=== PATIENT | female | born 1975 | race Caucasian/White ===

== ENCOUNTER 2022-11-14 12:51 | Inpatient (IN) | payer SELFPAY ==
[~2022-11-14] VITALS: Ht 157.5 cm; Wt 37.2 kg
[2022-11-14 15:54] VITALS: BP_SYST 101; BP_SYST 139; BP_DIAS 76; BP_DIAS 89; PULSE 111; PULSE 99; RESP 22; TEMP 98.4; TEMP 98.9
[2022-11-14 16:16] LABS: GLUCOMETER DEV NAME(LOC) POC.BV
[2022-11-14] MEDS ORDERED: HALOPERIDOL 5 MG TABLET PO PRN (17:15)
[2022-11-14] MEDS ORDERED: LORazepam 2 MG TABLET PO PRN (17:15)
[2022-11-14] MEDS ORDERED: ZOLPIDEM TARTRATE 10 MG TABLET PO PRN (17:15)
[2022-11-14 17:54] VITALS: BP 107/82; PULSE 74; RESP 18; TEMP 98.4; O2SAT 100
[2022-11-14] MEDS ORDERED: MAGNESIUM HYDROXIDE SUSPENSION 30 ML UDCUP PO PRN (19:15)
[2022-11-14] MEDS ORDERED: IBUPROFEN 400 MG TABLET PO PRN (19:15)
[2022-11-14] MEDS ORDERED: ACETAMINOPHEN 325 MG TABLET PO PRN (19:15)
[2022-11-14] MEDS ORDERED: NICOTINE 14 MG/24 HOUR PATCH TD PRN (19:15)
[2022-11-14] MEDS ORDERED: GuaiFENesin/D-METHORPHAN [SUGAR-FREE] 200-20MG/10 ML SYRUP UDCUP PO PRN (19:15)
[2022-11-14] MEDS ORDERED: ONDANSETRON HCL 4 MG TABLET PO PRN (19:15)
[2022-11-14] MEDS ORDERED: MAG HYDROX/AL HYDROX/SIMETH ES 30 ML SUSPENSION UDCUP PO PRN (19:15)
[2022-11-14] MEDS ORDERED: PETROLATUM,WHITE 28 GM JELLY TP PRN (19:15)
[2022-11-14] MEDS ORDERED: DOCUSATE SODIUM 100 MG CAPSULE PO PRN (19:15)
[2022-11-14] MEDS ORDERED: ALBUTEROL SULFATE HFA 90 MCG/PUFF 8 GM INHALER IH PRN (19:15)
[2022-11-14 20:10] VITALS: BP 112/72; PULSE 68; RESP 18; TEMP 98; O2SAT 83
[2022-11-15 05:09] VITALS: RESP 18
[2022-11-15 07:53] LABS: BASOPHILS % (AUTO) 1.2 % (0.0-2.0); EOSINOPHILS % (AUTO) 0.4 % (1.0-6.0); HEMATOCRIT 36.3 % (36-46); LYMPHOCYTES # (AUTO) 2.1 K/uL (1.0-4.8); LYMPHOCYTES % (AUTO) 25.4 % (22.0-44.0); MEAN CORPUSCULAR HEMOGLOBIN 30.7 pg (26.0-34.0); MEAN CORPUSCULAR HGB CONC 33.1 G/dL (31.0-37.0); MEAN CORPUSCULAR VOLUME 93 fL (80-100); MONOCYTES # (AUTO) 0.6 K/uL (0.1-1.0); MONOCYTES % (AUTO) 6.8 % (2.0-9.0); NEUTROPHILS # (AUTO) 5.5 K/uL (1.8-7.7); NEUTROPHILS % (AUTO) 66.2 % (40.0-70.0); PLATELET COUNT (AUTO) 302 K/uL (150-450); RED BLOOD CELL COUNT(AUTO) 3.93 MIL/uL (4.00-5.20); RED CELL DISTRIBUTION WIDTH 15.1 % (11.5-14.5)
[2022-11-15 08:21] VITALS: BP 119/88; PULSE 67; RESP 18; TEMP 97.8; O2SAT 96
[2022-11-15 08:46] LABS: ALANINE AMINOTRANSFERASE 20 U/L (12-78); ALBUMIN 3.4 g/dL (3.4-5.0); ALKALINE PHOSPHATASE 57 U/L (46-116); ANION GAP 6 mmol/L (8-16); ASPARTATE AMINOTRANSFERASE 19 U/L (15-37); CALCIUM, TOTAL 8.6 mg/dL (8.8-10.5); CARBON DIOXIDE 25 mmol/L (22-29); CHLORIDE 105 mmol/L (98-107); CHOL/HDL RATIO 2.7 (3.9-5.7); CHOLESTEROL 154 mg/dL (131-200); CREATININE 0.54 mg/dL (0.60-1.30); FREE T4 (FREE THYROXINE) 0.97 ng/dL (0.76-1.46); GLOMERULAR FILTR. RATE CALC > 60 mL/min (>60); GLUCOSE,RANDOM 90 mg/dL (70-110); HCG,QUANTITATIVE 1 mIU/mL (0-6); HDL CHOLESTEROL 57 mg/dL (40-60); LDL CHOL (CALC.) 87 mg/dL (0-130); POTASSIUM 3.9 mmol/L (3.5-5.1); SODIUM SERUM 136 mmol/L (136-145); THYROID STIMULATING HORMONE 1.12 uIU/mL (0.36-3.74); TOTAL PROTEIN, SERUM 6.9 g/dL (6.4-8.2); TRIGLYCERIDES 50 mg/dL (15-150)
[2022-11-15 11:06] LABS: HEMOGLOBIN A1C 5.1 % (3.8-5.6)
[2022-11-15 12:30] VITALS: RESP 18; O2SAT 96
[2022-11-15 13:30] VITALS: RESP 18
[2022-11-15 20:17] VITALS: BP 122/92; PULSE 67; RESP 18; TEMP 98.2; O2SAT 98
[2022-11-15] MEDS ORDERED: MIRTAZAPINE 15 MG TABLET PO SCH (21:00)
[2022-11-15] MEDS: QUEtiapine FUMARATE 100 MG TABLET PO SCH (21:04)
[2022-11-15] MEDS ORDERED: LORazepam 1 MG TABLET PO PRN (21:15)
[2022-11-16 08:06] LABS: HEPATITIS C AB (EIA) Non Reactive (Non Reactive)
[2022-11-16 08:23] VITALS: BP 107/75; PULSE 89; RESP 17; TEMP 97.7; O2SAT 96
[2022-11-16] MEDS: MULTIVITAMINS WITH MINERALS, THERAPEUTIC TABLET PO SCH (09:00)
[2022-11-16] MEDS: THIAMINE 100 MG TABLET PO SCH (09:00)
[2022-11-16 20:15] VITALS: BP 130/85; PULSE 77; RESP 17; TEMP 98; O2SAT 100
[2022-11-16] MEDS: ZOLPIDEM TARTRATE 5 MG TABLET PO PRN (20:24)
[2022-11-16] MEDS: QUEtiapine FUMARATE 100 MG TABLET PO SCH (20:24)
[2022-11-17 08:17] VITALS: BP 124/82; PULSE 77; RESP 18; TEMP 97.6; O2SAT 100
[2022-11-17] MEDS: MULTIVITAMINS WITH MINERALS, THERAPEUTIC TABLET PO SCH (08:36)
[2022-11-17] MEDS: THIAMINE 100 MG TABLET PO SCH (08:45)
[2022-11-17] MEDS ORDERED: MEGESTROL ACETATE 400 MG/10 ML SUSPENSION UDCUP PO SCH (09:00)
[2022-11-17] MEDS: ZOLPIDEM TARTRATE 5 MG TABLET PO PRN (20:14)
[2022-11-17] MEDS: QUEtiapine FUMARATE 100 MG TABLET PO SCH (20:14)
[2022-11-17 21:14] VITALS: BP 125/84; PULSE 79; RESP 18; TEMP 97.6; O2SAT 98
[2022-11-18 08:06] VITALS: BP 120/63; PULSE 90; RESP 18; TEMP 97.9; O2SAT 99
[2022-11-18] MEDS: MULTIVITAMINS WITH MINERALS, THERAPEUTIC TABLET PO SCH (08:17)
[2022-11-18] MEDS: THIAMINE 100 MG TABLET PO SCH (08:17)
[2022-11-18 08:32] LABS: MAGNESIUM 2.3 mg/dL (1.80-2.40); PHOSPHORUS 3.4 mg/dL (2.5-4.9); POTASSIUM 4.1 mmol/L (3.5-5.1)
[2022-11-18] MEDS: QUEtiapine FUMARATE 100 MG TABLET PO SCH (20:00)
[2022-11-18] MEDS: ZOLPIDEM TARTRATE 5 MG TABLET PO PRN (20:00)
[2022-11-18 20:19] VITALS: BP 116/80; PULSE 84; RESP 19; TEMP 97.8; O2SAT 98
[2022-11-19 02:39] VITALS: BP 108/68; PULSE 76; RESP 16; TEMP 97.6; O2SAT 98
[2022-11-19 08:24] VITALS: BP 103/62; PULSE 72; RESP 17; TEMP 97.3; O2SAT 97
[2022-11-19] MEDS: MULTIVITAMINS WITH MINERALS, THERAPEUTIC TABLET PO SCH (08:31)
[2022-11-19] MEDS: THIAMINE 100 MG TABLET PO SCH (08:31)
[2022-11-19 20:09] VITALS: BP 108/73; PULSE 77; RESP 17; TEMP 97.3; O2SAT 99
[2022-11-19] MEDS: QUEtiapine FUMARATE 100 MG TABLET PO SCH (20:09)
[2022-11-19] MEDS: ZOLPIDEM TARTRATE 5 MG TABLET PO PRN (20:11)
[2022-11-20 04:05] VITALS: BP 107/81; PULSE 79; RESP 17; TEMP 97.5; O2SAT 99
[2022-11-20 08:18] LABS: MAGNESIUM 2.3 mg/dL (1.80-2.40); PHOSPHORUS 3.5 mg/dL (2.5-4.9); POTASSIUM 3.6 mmol/L (3.5-5.1)
[2022-11-20] MEDS: THIAMINE 100 MG TABLET PO SCH (08:47)
[2022-11-20] MEDS: MULTIVITAMINS WITH MINERALS, THERAPEUTIC TABLET PO SCH (08:48)
[2022-11-20 11:08] VITALS: BP 117/66; PULSE 86; RESP 16; TEMP 98.4; O2SAT 100
[2022-11-20] MEDS: QUEtiapine FUMARATE 100 MG TABLET PO SCH ×2 (20:14→21:00)
[2022-11-20] MEDS: ZOLPIDEM TARTRATE 5 MG TABLET PO PRN (20:20)
[2022-11-20 20:40] VITALS: BP 133/72; PULSE 72; RESP 17; TEMP 98.4; O2SAT 98
[2022-11-21 08:00] LABS: MAGNESIUM 2.4 mg/dL (1.80-2.40)
[2022-11-21 08:21] VITALS: BP 111/74; PULSE 78; RESP 19; TEMP 97.9; O2SAT 100
[2022-11-21] MEDS: MULTIVITAMINS WITH MINERALS, THERAPEUTIC TABLET PO SCH (09:00)
[2022-11-21] MEDS: THIAMINE 100 MG TABLET PO SCH (09:00)
[2022-11-21] MEDS ORDERED: THIA100T80 PO (18:14)
[2022-11-21] MEDS ORDERED: MIRT-89 PO (18:14)
[2022-11-21] MEDS ORDERED: QUET100T34 PO (18:14)
== END 2022-11-21 13:45 | disposition home or self-care (01) | DRG 885 ==
LOC: B2S 16:19
PROVIDERS: ADMIT Psychiatry & Neurology Psychiatry; ATTEND Psychiatry & Neurology Psychiatry
DX: F29 Unspecified psychosis not due to a substance or known physiological condition (principal); R45.851 Suicidal ideations; G47.00 Insomnia, unspecified; F10.10 Alcohol abuse, uncomplicated; F41.9 Anxiety disorder, unspecified; Z20.822 Contact with and (suspected) exposure to COVID-19; F19.10 Other psychoactive substance abuse, uncomplicated; Z91.040 Latex allergy status; Z91.011 Allergy to milk products; Z91.013 Allergy to seafood
CPT/HCPCS: 70450; 80053; 80061; 83036; 83735; 84100; 84132; 84436; 84439; 84443; 84702; 85025; 86592; 86803; 87340; G0480